=== PATIENT | male | born 1980 | race Caucasian/White ===

== ENCOUNTER 2016-07-12 17:06 | Emergency (ER) | payer OTHER ==
[~2016-07-12] VITALS: Ht 170.2 cm; Wt 64.9 kg
[2016-07-12 17:45] LABS: ABSOLUTE BASOPHIL COUNT 0.1 /CUMM (0.0-0.2); ABSOLUTE EOSINOPHIL COUNT 0.2 /CUMM (0.0-0.7); ABSOLUTE GRANULOCYTE CT 7.9 /CUMM (1.4-6.5); ABSOLUTE LYMPH COUNT 2.3 /CUMM (1.2-3.4); ABSOLUTE MONOCYTE COUNT 0.8 /CUMM (0.10-0.60); BASOPHIL % 0.6 % (0.0-2.0); EOSINOPHIL % 2.1 % (0-5); GRANULOCYTE % 69.6 % (42.2-75.2); HEMATOCRIT 45.1 % (42-52); MEAN CORPUSCULAR HGB 29.2 PG (27.0-31.0); MEAN CORPUSCULAR HGB CONC 34.4 G/DL (33.0-37.0); MEAN CORPUSCULAR VOLUME 84.7 FL (80.0-94.0); MEAN PLATELET VOLUME 8.3 FL (7.4-10.4); PLATELET COUNT 288 /CUMM (130-400); RBC DISTRIBUTION WIDTH 13.1 % (11.5-14.5); RED BLOOD CELL CT 5.32 /CUMM (4.70-6.10); WHITE BLOOD CELL COUNT 11.3 /CUMM (4.8-10.8)
[2016-07-12] MEDS ORDERED: ADDERALL XR 2525 MG PO (21:10)
[2016-07-12] MEDS ORDERED: ZOLPIDEM TARTRA10 M1 PO (21:10)
[2016-07-12] MEDS ORDERED: MULTI-DAY VITA1 EACH PO (21:10)
[2016-07-12] MEDS ORDERED: VITAMIN B COMP1 EACH PO (21:10)
[2016-07-12] MEDS ORDERED: ASPIRIN325 M2 PO (21:11)
--- NOTE | 2016-07-12 21:11 | ED HEADACHE COMPLAINT ---
History of Present Illness General Chief Complaint: Chest Pain Stated Complaint: GISSEL ORDONEZ FOR CP Source: patient Exam Limitations: no limitations Vital Signs & Intake/Output Vital Signs & Intake/Output Vital Signs Date Time Temp Pulse Resp B/P B/P Pulse O2 O2 Flow FiO2 Mean Ox Delivery Rate 07/12 2215 96.3 82 20 153/90 99 Room Air 07/12 1715 98.4 96 16 192/137 100 Room Air Allergies Coded Allergies: codeine (ITCH 07/12/16) Reconcile Medications Aspirin (Aspirin*) 325 MG TABLET 1 TAB PO ONCE HEADACHE (Reported) Dextroamphetamine/Amphetamine (Adderall XR 25 MG Capsule) 25 MG CAP.ER.24H 1 CAP PO QAM adhd (Reported) Multivitamin (Multi-Day Vitamins) 1 EACH TABLET 1 TAB PO DAILY SUPPLEMENT ( Reported) Vitamin B Complex 1 EACH CAPSULE 1 CAP PO DAILY SUPPLEMENT (Reported) Zolpidem Tartrate 10 MG TABLET 1 TAB PO QPM SLEEP (Reported) Triage Note: PT SENT IN BY DR. ADORNO FOR SOME CHEST DISCOMFORT THAT BEGAN AFTER HE WAS IN HER OFFICE. PT STATES HE DOES SUFFER WITH ANXIETY AND THINKS ONCE SHE TOLD HIM HIS BP WAS HIGH IT PROBABLY MADE IT WORSE. PT WENT TO SEE DR. ORDONEZ FOR HIS BP AFTER HE TOOK IT AT HOME AND IT WAS ELEVATED. PT STATES HE HAS HAD A BECKMAN FOR THE PAST 2 DAYS. Triage Nurses Notes Reviewed? yes HPI: Mr. Vasquez is a 35 yo m w/ PMH of ADHD, insomnia and remote hx of HTN isn't using the emergency department for elevated blood pressure. Patient states he went to his primary care doctor for a normal visit when he was told blood pressure was elevated to 180s. He got a little freaked out and worried. Primary care doctor started him on metoprolol as well as Pura and told to come to the emergency department for further evaluation. Patient states he's had a mild headache in the right anabaptism for the past 2-3 days, however the headache is completely resolved now. He used to be on lisinopril many years ago but stopped taking it accidentally without discussion with the primary care doctor. Patient denies any chest pain, dyspnea upon exertion, shortness of breath, abdominal pain, nausea, vomiting, diarrhea or weight loss. Patient denies any family members dying at a young age. He also denies any sudden in the family. (HANNA COMBS MD) Past History Travel History Traveled to [place] past 21 day No Medical History Any Pertinent Medical History? see below for history Cardiovascular: hypertension Psychiatric: anxiety, insomnia Surgical History Surgical History: none Psychosocial History What is your primary language Cambodian Tobacco Use: Quit >30 days ago ETOH Use: denies use Illicit Drug Use: marijuana Family History Comment: "everyone has HTN" Hx Contributory? Yes (HANNA COMBS MD) Review of Systems Review of Systems Constitutional: Reports: see HPI. Eyes: Reports: no symptoms. Ears, Nose, Throat, Mouth: Reports: no symptoms. Respiratory: Reports: no symptoms. Cardiovascular: Reports: no symptoms. Gastrointestinal/Abdominal: Reports: no symptoms. Genitourinary: Reports: no symptoms. Musculoskeletal: Reports: no symptoms. Skin: Reports: no symptoms. Neurological/Psychological: Reports: no symptoms. Hematologic/Endocrine: Reports: no symptoms. Endocrine: Reports: no symptoms. Immunologic/Allergic: Reports: no symptoms. All Other Systems: Reviewed and Negative (HANNA COMBS MD) Physical Exam Physical Exam General Appearance: well developed/nourished, no apparent distress, alert, awake , comfortable Head: atraumatic, normal appearance Eyes: Bilateral: normal appearance, PERRL, EOMI. Ears, Nose, Throat: normal pharynx, normal ENT inspection, hearing grossly normal Neck: normal inspection, supple, full range of motion Respiratory: normal breath sounds, chest non-tender, no respiratory distress Cardiovascular: regular rate/rhythm Gastrointestinal: normal bowel sounds, soft, non-tender Back: normal inspection, normal range of motion Extremities: normal inspection, normal capillary refill, normal range of motion, no edema Psychiatric: awake, alert, oriented x 3 Cranial Nerves: normal hearing, normal speech, PERRL, CN2-12 wnl Coordination/Gait: normal gait Motor/Sensory: no motor/sensory deficits Skin: intact, normal color, warm/dry Core Measures Severe Sepsis Present: No Septic Shock Present: No (HANNA COMBS MD) Progress Differential Diagnosis: cluster BECKMAN, migraine BECKMAN, tension BECKMAN, LVH, hypertensive urgency vs emergency Plan of Care: Orders Procedure Date/time Status EKG 07/12 2156 Active TROPONIN LEVEL 07/12 2137 Complete TROPONIN LEVEL 07/12 1716 Complete COMPREHENSIVE METABOLIC PANEL 07/12 1716 Complete CBC WITHOUT DIFFERENTIAL 05/18 1717 Complete EKG 07/12 1707 Active Laboratory Tests 07/12/16 2207: Troponin I < 0.01 07/12/16 1723: Anion Gap 14, Estimated GFR > 60, BUN/Creatinine Ratio 22.2, Glucose 90, Calcium 9.7, Total Bilirubin 0.6, AST 26, ALT 41, Alkaline Phosphatase 85, Troponin I < 0.01, Total Protein 7.9, Albumin 4.9, Globulin 3.0, Albumin/Globulin Ratio 1.6, CBC w Diff NO MAN DIFF REQ, RBC 5.32, MCV 84.7, MCH 29.2, RDW 13.1, MPV 8.3, Gran % 69.6, Lymphocytes % 20.7, Monocytes % 7.0, Eosinophils % 2.1, Basophils % 0.6, Absolute Granulocytes 7.9 H, Absolute Lymphocytes 2.3, Absolute Monocytes 0.8 H, Absolute Eosinophils 0.2, Absolute Basophils 0.1, PUBS MCHC 34.4 35-year-old male with history of hypertension being transferred into the ED for episode of hypertension after being noncompliant with medications for several years. Was started on metoprolol and losartan at his primary care doctor's office today but was still sent into the ED for further evaluation. He is otherwise asymptomatic at this point in time. Does not endorse any dyspnea upon exertion or chest pain. EKG is concerning for LVH. Initial troponin is negative. Basic labs are within normal limits. Discussed at length with the patient about asymptomatic hypertension. He has been likely this hypertensive for months if not years. No benefit in decreasing his blood pressure acutely with IV medications. Explained the importance of taking his blood pressure medication and routinely checking his blood pressure. Patient is onboard with this plan. Also recommended that the patient follow up with his primary care doctor for an outpatient echo. While being assessed, the patient was otherwise symptom free. It is possible that he had a mild case of hypertensive urgency however he does not have any symptoms at this point in time therefore we will not administer any IV medications. It could also be that the patient just had a tension or migraine headache. We'll obtain repeat EKG and troponin if both are otherwise unchanged, we'll discharge home with follow-up with primary care doctor. (GARRET ERVIN,HANNA) Departure Departure Time of Disposition: 2242 Disposition: HOME OR SELF CARE Condition: Stable Clinical Impression Primary Impression: Hypertension Qualifiers: Hypertension type: unspecified secondary hypertension Qualified Code: I15.9 - Secondary hypertension, unspecified Secondary Impressions: LVH (left ventricular hypertrophy) Referrals: MERY ERVIN,DARCIE Carpenter (PCP/Family) Additional Instructions: These follow-up with her primary care doctor. It is important that you have an outpatient ECHO performed to assess the thickness and overall function of your heart. It might be necessary for you to also have a stress test done as an outpatient. Please make sure you take all of your antihypertensive medications as prescribed. Check your blood pressure on a regular basis. It is useful if you write down your blood pressures and bring them to your primary care doctor to assess how the blood pressure medications are working for him. Departure Forms: Customer Survey General Discharge Information (GARRET ERVIN,HANNA) Resident Co-Sign Statement Statement: ED Attending supervision documentation- I saw and evaluated the patient. I have also reviewed all the pertinent lab results and diagnostic results. I agree with the findings and the plan of care as documented in the Resident's documentation. x I have reviewed the ED Record and agree with the Resident's documentation. [] Additions or exceptions (if any) to the Resident's note and plan are summarized below: [] (LILLIE ERVIN,RADHA)
[2016-07-12 22:15] VITALS: BP 153/90
== END 2016-07-12 23:22 ==
LOC: ERH 17:06
PROVIDERS: Emergency Medicine
DX: I10 Essential (primary) hypertension (principal); I51.7 Cardiomegaly; Z87.891 Personal history of nicotine dependence
CPT/HCPCS: 93005; 93010